=== PATIENT | male | born 1940 | race Caucasian/White ===

== ENCOUNTER 2020-06-15 11:12 | Inpatient (IN) | payer MEDICARE ==
[~2020-06-15] VITALS: Ht 182.9 cm; Wt 77.8 kg
[2020-06-15] MEDS ORDERED: DILTIAZEM 5 MG/ML, 5ML ONE (11:32)
[2020-06-15] MEDS ORDERED: ASPIRIN 325 MG TABLET ONE (11:34)
--- NOTE | 2020-06-15 11:47 | NUR ---
IN ROOM TO MEDICATE PT. IV ACCESS OBTAINED AND PT MEDICATED PER ORDER. PT EXPERIENCED A 5 BEAT RUN OF V TACH FOLLOWED BY COUPLETS DURING MEDICATION ADMIN. MADE AWARE OF SITUATION. CODE CART AT BEDSIDE.
[2020-06-15 11:56] LABS: BASOPHILS # (AUTO) 0.03 x10^3/uL (0-0.1); BASOPHILS % (AUTO) 1 % (0-1); EOSINOPHILS # (AUTO) 0.09 x10^3/uL (0-0.4); EOSINOPHILS % (AUTO) 2 % (1-7); LYMPHOCYTES # (AUTO) 0.71 x10^3/uL (1-3.4); LYMPHOCYTES % (AUTO) 15 % (22-44); MD NO; MEAN CORPUSCULAR HEMOGLOBIN 34.2 pg (27.5-34.5); MEAN CORPUSCULAR HGB CONC 32.6 g/dL (33.2-36.2); MEAN CORPUSCULAR VOLUME 104.9 fL (81-97); MEAN PLATELET VOLUME 8.6 fL (7.4-10.4); MONOCYTES # (AUTO) 0.72 x10^3/uL (0.2-0.8); MONOCYTES % (AUTO) 15 % (2-9); NEUTROPHILS # (AUTO) 3.23 x10^3/uL (1.8-6.8); NEUTROPHILS % (AUTO) 68 % (42-75); PLATELET COUNT 171 x10^3/uL (130-400); RED BLOOD COUNT 4.11 x10^6/uL (4.38-5.82); RED CELL DISTRIBUTION WIDTH 14.6 % (9.4-14.8)
[2020-06-15] MEDS ORDERED: DILTIAZEM 5 MG/ML, 5ML IVPush ONE (12:00)
[2020-06-15] MEDS ORDERED: SODIUM CHLORIDE FLUSH 10ML SYR IVF ONE (12:00)
[2020-06-15] MEDS ORDERED: ASPIRIN 81 MG TABLET CHEW PO ONE (12:00)
[2020-06-15 12:05] LABS: ALBUMIN 3.8 g/dL (3.4-5.0); ANION GAP 8 mmol/L (5-15); CALCIUM 9.1 mg/dL (8.5-10.1); CHLORIDE 108 mmol/L (98-107); CREATININE 0.73 mg/dL (0.7-1.3)
[2020-06-15 12:06] LABS: D-DIMER 1.88 ug/mlFEU (0.00-0.52); INTERNATIONAL NORMALIZED RATIO 1.04 (0.93-1.1); PROTHROMBIN TIME 10.7 Seconds (9.6-11.5)
[2020-06-15 12:09] LABS: TROPONIN I < 0.015 ng/mL (0.000-0.045)
[2020-06-15] MEDS ORDERED: OMNIPAQUE 350 MG/ML, 100ML BOTTLE ONE (13:30)
--- NOTE | 2020-06-15 13:46 | NUR ---
PT BACK FROM CT NOW
[2020-06-15] MEDS ORDERED: ATOR20TA37 PO (14:19)
[2020-06-15] MEDS ORDERED: ATOR10TA9 PO (14:19)
[2020-06-15] MEDS ORDERED: SODIUM CHLORIDE FLUSH 10ML SYR IVF PRN (14:30)
[2020-06-15] MEDS ORDERED: SODIUM CHLORIDE 0.9% 1,000 ML IV ONE (14:30)
--- NOTE | 2020-06-15 15:21 | NUR ---
BREAK RN: PT RESTING ON [place]WSON. NADN. TERAN.
[2020-06-15 16:20] VITALS: BP 119/72
[2020-06-15] MEDS: POTASSIUM CHLORIDE 20 MEQ TAB.ER.PRT PO SCH (17:17)
[2020-06-15 18:01] LABS: TROPONIN I < 0.015 ng/mL (0.000-0.045)
[2020-06-15 18:25] VITALS: BP 134/89
[2020-06-15] MEDS: DILTIAZEM 125 MG in SODIUM CHLORIDE 0.9% 100 ML IV SCH (18:26)
[2020-06-15 19:13] VITALS: BP 127/78
[2020-06-15] MEDS ORDERED: ONDANSETRON 2MG/ML, 2ML IVPush PRN (20:00)
[2020-06-15] MEDS ORDERED: TRAZODONE 50MG TABLET PO PRN (20:00)
[2020-06-15] MEDS ORDERED: MELATONIN 5 MG TABLET PO PRN (20:00)
[2020-06-15] MEDS ORDERED: ACETAMINOPHEN 325 MG TABLET PO PRN (20:00)
[2020-06-15] MEDS ORDERED: METOPROLOL 1 MG/ML, 5ML IVPush PRN (20:00)
[2020-06-15] MEDS: APIXABAN 5 MG TABLET PO SCH (20:17)
[2020-06-15] MEDS ORDERED: ATORVASTATIN 20 MG TABLET PO SCH ×2 (21:00)
[2020-06-16 02:12] VITALS: BP 108/68
[2020-06-16 05:15] LABS: CALCIUM 8.3 mg/dL (8.5-10.1); CHLORIDE 112 mmol/L (98-107)
[2020-06-16 05:18] LABS: ANION GAP 7 mmol/L (5-15); CREATININE 0.51 mg/dL (0.7-1.3)
[2020-06-16] MEDS: DILTIAZEM 125 MG in SODIUM CHLORIDE 0.9% 100 ML IV SCH (05:21)
[2020-06-16 06:21] VITALS: BP 106/64
[2020-06-16] MEDS: POTASSIUM CHLORIDE 20 MEQ TAB.ER.PRT PO SCH ×2 (08:40→11:04)
[2020-06-16] MEDS: APIXABAN 5 MG TABLET PO SCH (08:40)
[2020-06-16] MEDS ORDERED: METOPROLOL TARTRATE 25 MG TAB PO SCH (10:30)
[2020-06-16] MEDS ORDERED: APIX5TAB PO (10:44)
[2020-06-16] MEDS ORDERED: METO25TA35 PO (10:44)
[2020-06-16] MEDS ORDERED: HYDR25TA6 PO (10:44)
[2020-06-16] MEDS ORDERED: POTA20TA6 PO (10:44)
[2020-06-16] MEDS ORDERED: HYDROCHLOROTHIAZIDE 25 MG TABLET PO SCH (11:00)
== END 2020-06-16 12:20 | disposition home or self-care (01) | DRG 310 ==
LOC: ED 12:12 → 5SO 14:30 → DCLOUNGE 06-16 12:15
PROVIDERS: ADMIT Internal Medicine; ATTEND Internal Medicine
DX: I48.91 Unspecified atrial fibrillation (principal); C61 Malignant neoplasm of prostate; E78.5 Hyperlipidemia, unspecified; E87.6 Hypokalemia; I49.3 Ventricular premature depolarization; R60.0 Localized edema; Z82.3 Family history of stroke; Z79.01 Long term (current) use of anticoagulants; Z85.46 Personal history of malignant neoplasm of prostate; Z86.73 Personal history of transient ischemic attack (TIA), and cerebral infarction without residual deficits; Z83.3 Family history of diabetes mellitus
CPT/HCPCS: 36415; 71045; 71275; 80048; 82040; 83735; 84443; 84484; 85025; 85379; 85610; 85730; 93005; 93306; 96374; 99291; G0378; Q9967

== ENCOUNTER 2020-07-25 08:23 | Outpatient (CLI) | payer MEDICARE ==
[~2020-07-25 08:23] MED LIST: APIX5TAB PO; ATOR10TA9 PO; ATOR20TA37 PO; HYDR25TA6 PO; METO25TA35 PO; POTA20TA6 PO; REGADENOSON 0.4 MG/5 ML SYRINGE ONE
== END 2020-07-25 23:59 | disposition home or self-care (01) ==
LOC: CFH 08:23
PROVIDERS: ATTEND Internal Medicine Cardiovascular Disease
DX: Z01.810 Encounter for preprocedural cardiovascular examination (principal); I48.91 Unspecified atrial fibrillation
CPT/HCPCS: 78452; 93017; A9502; J2785

== ENCOUNTER 2020-08-02 10:02 | Day surgery (SDC) | payer MEDICARE ==
[~2020-08-02] VITALS: Ht 185.4 cm; Wt 71.0 kg
[~2020-08-02 10:02] MED LIST changes: -REGADENOSON 0.4 MG/5 ML SYRINGE ONE
[2020-08-02] MEDS ORDERED: METO25TA35 PO (10:46)
[2020-08-02] MEDS ORDERED: DILT120C58 PO (10:46)
[2020-08-02 10:58] LABS: BASOPHILS % (AUTO) 1 % (0-1); EOSINOPHILS % (AUTO) 1 % (1-7); LYMPHOCYTES % (AUTO) 14 % (22-44); MEAN CORPUSCULAR HEMOGLOBIN 32.4 pg (27.5-34.5); MEAN CORPUSCULAR HGB CONC 33.1 g/dL (33.2-36.2); MEAN PLATELET VOLUME 7.3 fL (7.4-10.4); MONOCYTES % (AUTO) 14 % (2-9); NEUTROPHILS % (AUTO) 70 % (42-75); PLATELET COUNT 211 x10^3/uL (130-400); RED BLOOD COUNT 4.25 x10^6/uL (4.38-5.82); RED CELL DISTRIBUTION WIDTH 15.1 % (9.4-14.8)
[2020-08-02 10:59] LABS: MD NO
[2020-08-02 11:02] LABS: ANION GAP 8 mmol/L (5-15); CALCIUM 8.8 mg/dL (8.5-10.1); CHLORIDE 106 mmol/L (98-107); CREATININE 0.71 mg/dL (0.7-1.3)
[2020-08-02] MEDS ORDERED: PROPOFOL 10 MG/ML, 20ML ONE (11:35)
== END 2020-08-02 12:47 | disposition home or self-care (01) ==
LOC: CACL 10:02
PROVIDERS: ATTEND Internal Medicine Cardiovascular Disease
DX: I48.91 Unspecified atrial fibrillation (principal); C64.9 Malignant neoplasm of unspecified kidney, except renal pelvis; I10 Essential (primary) hypertension; E78.2 Mixed hyperlipidemia; E66.3 Overweight; Z79.01 Long term (current) use of anticoagulants; Z79.899 Other long term (current) drug therapy
CPT/HCPCS: 36415; 80048; 85025; 92960; 93005; J2704

== ENCOUNTER 2021-02-26 21:01 | Emergency (ER) | payer MEDICARE ==
[~2021-02-26] VITALS: Ht 185.4 cm; Wt 64.2 kg
[~2021-02-26 21:01] MED LIST changes: +DILT120C58 PO
--- NOTE | 2021-02-26 21:34 | NUR ---
PT. TO ED TONIGHT WITH C/O FEELING LIGHT-HEADED ALL DAY TODAY ALONG WITH SOB WITH EXERTION. PT. REPORTS HIS B/P MACHINE AT HOME WAS NOT READING A BLOOD PRESSURE AND THAT HE WAS UNABLE TO FEEL HIS OWN RADIAL PULSE. EKG WAS DONE IN TRIAGE AND A-FIB NOTED; PT. HAS KNOWN HX OF A-FIB. PT. DENIES ANY CP OR SOB AT REST. PT. CHANGED INTO GOWN AND PLACED ON MONITORS; A-FIB WITH RATE OF 80-115 NOTED. PT. STEADY ON HIS FEET WHEN CHANGING INTO GOWN. AT FOR SUPPORT. CALL LIGHT IN REACH. ALL SAFETY MEASURES OBSERVED. DR. GOINS IN TO EVAL PT. AND DISCUSS POC.
[2021-02-26 22:11] LABS: BASOPHILS % (AUTO) 0 % (0-1); EOSINOPHILS % (AUTO) 0 % (1-7); LYMPHOCYTES % (AUTO) 11 % (22-44); MEAN CORPUSCULAR HGB CONC 34.4 g/dL (33.2-36.2); MEAN PLATELET VOLUME 7.8 fL (7.4-10.4); MONOCYTES % (AUTO) 15 % (2-9); NEUTROPHILS % (AUTO) 73 % (42-75); PLATELET COUNT 255 x10^3/uL (130-400); RED BLOOD COUNT 4.02 x10^6/uL (4.38-5.82); RED CELL DISTRIBUTION WIDTH 14.2 % (9.4-14.8)
[2021-02-26 22:12] LABS: ALANINE AMINOTRANSFERASE 41 U/L (12-78); ALBUMIN 3.9 g/dL (3.4-5.0); ANION GAP 10 mmol/L (5-15); CALCIUM 9.2 mg/dL (8.5-10.1); CHLORIDE 85 mmol/L (98-107); CREATININE 1.49 mg/dL (0.7-1.3)
[2021-02-26 22:19] LABS: MD NO
[2021-02-26 22:22] LABS: ALKALINE PHOSPHATASE 92 U/L (45-117); BILIRUBIN,TOTAL 1.7 mg/dL (0.2-1.0); TOTAL PROTEIN 7.8 g/dL (6.4-8.2); TROPONIN I < 0.015 ng/mL (0.000-0.045)
[2021-02-26] MEDS ORDERED: POTASSIUM CHLORIDE 20 MEQ TAB.ER.PRT PO ONE (22:30)
[2021-02-26] MEDS ORDERED: POTASSIUM CHLORIDE 20 MEQ in SODIUM CHLORIDE 0.9% 250 ML IV ONE (22:30)
[2021-02-26] MEDS ORDERED: POTASSIUM CHLORIDE 20 MEQ TAB.ER.PRT ONE (22:58)
--- NOTE | 2021-02-26 23:25 | NUR ---
DR. GOINS IN TO DISCUSS POC WITH PT. AND FAMILY. PT. REFUSING TO BE ADMITTED HIS (WHO HE IS THE CAREGIVER FOR) CAN'T STAY WITH HIM PER HOSPITAL POLICY. PT. DOES AGREE TO COMING BACK IN IF HE FEELS HIS CONDITION IS GETTING WORSE. PT. STATES BY TOMORROW HE WILL BE ABLE TO ARRANGE FOR SOMEONE TO ASSIT IN CARING FOR HIS . PT. TO RECEIVE IV POTASSIUM HERE ALONG WITH THE PILLS HE RECEIVED PER DEC. DR. GOINS DISCUSSED RISKS OF LEAVING AMA AND PT. VERBALIZED UNDERSTANDING. PT. VERBALZIED THAT HE WILL F/U WITH HIS DIRECTOR INFORMATION FOR FURTHER EVAL.
[2021-02-27 01:04] VITALS: BP 116/71
== END 2021-02-27 01:27 | disposition left against medical advice (07) ==
LOC: ED 22:54
DX: R42 Dizziness and giddiness (principal); I48.91 Unspecified atrial fibrillation; R53.1 Weakness; R53.83 Other fatigue; E87.6 Hypokalemia
CPT/HCPCS: 36415; 71045; 80053; 83735; 83880; 84443; 84484; 85025; 93005; 96365; 96366; 99285; J3480; J7050